=== PATIENT | female | born 1965 | race Caucasian/White ===

== ENCOUNTER 2016-08-31 10:35 | Outpatient (CLI) | payer OTHER ==
[2016-08-31 10:59] LABS: BASOPHILS % 0.4 (0.0-1.5); EOSINOPHILS % 1.7 % (0.0-6.8); MEAN CORPUSCULAR HEMOGLOBIN 32.9 pg (28.0-34.0); MEAN CORPUSCULAR VOLUME 97.6 fl (80.0-100.0); MONOCYTES % 2.8 % (0.0-11.0); NEUTROPHILS # 9.1 # k/uL (1.4-7.7)
[2016-08-31 11:25] LABS: eGFR (African) > 60; eGFR (Non-African) > 60
== END 2016-08-31 10:36 ==
LOC: LAB 10:35
PROVIDERS: ATTEND Physician Assistant
DX: Z00.00 Encounter for general adult medical examination without abnormal findings (principal); Z13.6 Encounter for screening for cardiovascular disorders; R10.30 Lower abdominal pain, unspecified
CPT/HCPCS: 36415; 80053; 80061; 85025; 87086